=== PATIENT | female | born 2000 | race Caucasian/White ===

== ENCOUNTER 2022-05-17 12:07 | Inpatient (IN) | payer BC ==
[~2022-05-17 12:07] MED LIST: Bupivacaine PF 0.5% 30 ML VIAL ONE
[2022-05-17] MEDS ORDERED: Acetaminophen 500 MG TAB PO PRN (12:18)
[2022-05-17] MEDS ORDERED: Docusate 100 MG CAP PO PRN (12:18)
[2022-05-17] MEDS ORDERED: Misoprostol 200 MCG TAB PR PRN (12:18)
[2022-05-17] MEDS ORDERED: Zolpidem Tartrate 5 MG TAB PO PRN (12:18)
[2022-05-17] MEDS ORDERED: Ondansetron PF 4 MG/2 ML Vial IVP PRN (12:18)
[2022-05-17] MEDS ORDERED: HYDROcodone/Acetaminophen 5/325 mg Tablet PO PRN ×2 (12:18)
[2022-05-17] MEDS ORDERED: Lidocaine 1% (PF) 30 ML VIAL SC PRN (12:18)
[2022-05-17] MEDS ORDERED: Ibuprofen 800 MG TAB PO PRN (12:18)
[2022-05-17] MEDS ORDERED: Butorphanol Tartrate 1 MG/ML VIAL SLOW IVP PRN (12:18)
[2022-05-17] MEDS ORDERED: Diphenoxylate HCl/Atropine Tablet PO PRN ×2 (12:18)
[2022-05-17] MEDS ORDERED: Promethazine HCl 25 MG/ML VIAL IM PRN (12:18)
[2022-05-17] MEDS ORDERED: hydrALAZINE 20 MG/ML VIAL SLOW IVP PRN (12:18)
[2022-05-17] MEDS ORDERED: Penicillin G 2.5 MILL.units 2.5 MILL.UNITS in Premix Bag 1 BAG IVPB SCH (12:30)
[2022-05-17] MEDS ORDERED: Penicillin G Potassium 5 MILL.UNITS in Sodium Chloride 0.9% 100 ML IVPB SCH (12:30)
[2022-05-17] MEDS ORDERED: NS w/ Oxytocin 30 units 500 ML IV SCH ×2 (12:30)
[2022-05-17] MEDS ORDERED: Lactated Ringer's 1,000 ML IV SCH (12:30)
[2022-05-17 12:58] VITALS: BMI 24.0
[2022-05-17] MEDS: Misoprostol 100 MCG TAB VAG SCH ×2 (13:26→17:53)
[2022-05-17 13:50] LABS: Hemoglobin 12.3 g/dL (12.0-15.5); Mean Corpuscular HGB CONC 36.2 g/dL (32.0-36.0); Mean Corpuscular Hemoglobin 36.5 pg (27.0-33.0); Mean Corpuscular Volume 100.9 fl (81.6-98.3); Mean Platelet Volume 11.4 fl (7.4-10.4); Platelet Count 267 10x3/uL (150-450); RBC Distribution Width 12.2 % (11.5-14.5); Red Blood Cell (RBC) Count 3.37 10x6/uL (3.90-5.03); White Blood Cell (WBC) Count 8.1 10x3/uL (3.5-10.5)
[2022-05-17 14:09] LABS: HBSAg Index 0.21 S/CO (0-0.99); HIV (1/2) Antibody/Antigen Non-Reactive (NonReactive); HIV 1/2 INDEX 0.07 S/CO (<1.00); Hep B Surf Ag Non-Reactive S/CO (NonReactive)
[2022-05-17 14:10] LABS: Syphilis Antibody Nonreactive (Nonreactive); Syphilis Antibody Index 0.02 S/CO (<1.00 Non-Reactive)
[2022-05-17 15:32] LABS: SARS-CoV-2 NAA Rapid Test Not Detected (NotDetected)
[2022-05-18] MEDS ORDERED: Fentanyl 2 mcg/Bup 0.1% Cadd 100 ML ONE (00:01)
[2022-05-18] MEDS ORDERED: Betamet Acet/Betamet Na Ph 30 MG/5 ML VIAL ONE (00:53)
[2022-05-18] MEDS ORDERED: Penicillin G Potassium 5 MILL.UNITS VIAL ONE (03:03)
[2022-05-18] MEDS ORDERED: Boostrix 0.5 ML (Tdap) VIAL (>/=7 yrs of age) IM ONE (06:52)
[2022-05-18] MEDS ORDERED: Misoprostol 200 MCG TAB VAG PRN (06:52)
[2022-05-18] MEDS ORDERED: Bisacodyl 10 MG SUPP PR PRN (06:52)
[2022-05-18] MEDS ORDERED: Benzocaine-Menthol 82.5 ML CAN TOP PRN (06:52)
[2022-05-18] MEDS ORDERED: hydrALAZINE 20 MG/ML VIAL SLOW IVP PRN (06:52)
[2022-05-18] MEDS ORDERED: HYDROcodone/Acetaminophen 5/325 mg Tablet PO PRN ×2 (06:52)
[2022-05-18] MEDS ORDERED: Preparation H Ointment 28 GM TUBE PR PRN (06:52)
[2022-05-18] MEDS ORDERED: Milk Of Magnesia 30 ML UDCUP PO PRN (06:52)
[2022-05-18] MEDS ORDERED: diphenhydrAMINE 25 MG CAP PO PRN (06:52)
[2022-05-18] MEDS ORDERED: Zolpidem Tartrate 5 MG TAB PO PRN (06:52)
[2022-05-18] MEDS ORDERED: Ondansetron PF 4 MG/2 ML Vial IVP PRN (06:52)
[2022-05-18] MEDS ORDERED: Lanolin Ointment 7 GM TUBE TOP PRN (06:52)
[2022-05-18] MEDS ORDERED: Witch Hazel-Glycerin 1 EACH JAR TOP PRN (06:53)
[2022-05-18] MEDS ORDERED: NS w/ Oxytocin 30 units 500 ML IV SCH (07:00)
[2022-05-18] MEDS: Prenatal Vitamin 1 TAB PO SCH (09:33)
[2022-05-18] MEDS: Ferrous Sulfate 325 MG TAB PO SCH ×2 (09:33→15:07)
[2022-05-18] MEDS: Docusate 100 MG CAP PO SCH ×2 (09:33→21:38)
[2022-05-18] MEDS ORDERED: Betamet Acet/Betamet Na Ph 30 MG/5 ML VIAL IM SCH (11:55)
[2022-05-18] MEDS: Ibuprofen 800 MG TAB PO SCH (12:56)
[2022-05-19] MEDS: Ibuprofen 800 MG TAB PO SCH ×4 (05:03→21:41)
[2022-05-19 05:21] LABS: ALT (SGPT) 61 U/L (8-55); AST (SGOT) 37 U/L (5-34); Albumin 2.8 g/dL (3.5-5.0); Alkaline Phosphatase 265 U/L (40-110); Anion Gap 13 mmol/L (10-20); BUN (Urea Nitrogen) 6 mg/dL (7.0-18.7); Bilirubin, Total 0.8 mg/dL (0.2-1.2); Calc. Creatinine Clearance 134 mL/min (70-130); Calcium 8.8 mg/dL (7.8-10.44); Carbon Dioxide 20 mmol/L (22-29); Chloride 110 mmol/L (98-107); Estimated GFR 126; Globulin 2.9 g/dL (2.4-3.5); Glucose 86 mg/dL (70-105); Potassium 4.2 mmol/L (3.5-5.1); Protein, Total 5.7 g/dL (6.0-8.3); Sodium 139 mmol/L (136-145)
[2022-05-19 05:24] LABS: Hemoglobin 11.5 g/dL (12.0-15.5); Mean Corpuscular HGB CONC 35.2 g/dL (32.0-36.0); Mean Corpuscular Hemoglobin 35.9 pg (27.0-33.0); Mean Corpuscular Volume 102.2 fl (81.6-98.3); Platelet Count 286 10x3/uL (150-450); RBC Distribution Width 12.4 % (11.5-14.5); White Blood Cell (WBC) Count 20.9 10x3/uL (3.5-10.5)
[2022-05-19] MEDS: Ferrous Sulfate 325 MG TAB PO SCH ×2 (08:37→14:53)
[2022-05-19] MEDS: Docusate 100 MG CAP PO SCH ×2 (09:36→21:41)
[2022-05-19] MEDS: Prenatal Vitamin 1 TAB PO SCH (09:36)
[2022-05-20] MEDS: Ibuprofen 800 MG TAB PO SCH (06:04)
[2022-05-20] MEDS: Prenatal Vitamin 1 TAB PO SCH (07:35)
[2022-05-20] MEDS: Docusate 100 MG CAP PO SCH (07:36)
[2022-05-20 08:46] VITALS: BP 135/69; TEMP 98.1
[2022-05-20] MEDS: Ferrous Sulfate 325 MG TAB PO SCH (08:54)
== END 2022-05-20 10:45 | disposition home or self-care (01) | DRG 805 ==
LOC: CSHLD 12:07 → CSHPP 05-18 09:15
PROVIDERS: ADMIT Obstetrics & Gynecology; ATTEND Obstetrics & Gynecology
PROC: 10907ZC Drainage of Amniotic Fluid, Therapeutic from Products of Conception, Via Natural or Artificial Opening (ICD-10-PCS; 2022-05-17)
PROC: 3E0P7VZ Introduction of Hormone into Female Reproductive, Via Natural or Artificial Opening (ICD-10-PCS; 2022-05-17)
PROC: 10E0XZZ Delivery of Products of Conception, External Approach (ICD-10-PCS; principal; 2022-05-18)
PROC: 0KQM0ZZ Repair Perineum Muscle, Open Approach (ICD-10-PCS; 2022-05-18)
PROC: 3E0334Z Introduction of Serum, Toxoid and Vaccine into Peripheral Vein, Percutaneous Approach (ICD-10-PCS; 2022-05-18)
DX: O26.62 Liver and biliary tract disorders in childbirth (principal); K83.1 Obstruction of bile duct; Z37.0 Single live birth; O60.14X0 Preterm labor third trimester with preterm delivery third trimester, not applicable or unspecified; O99.354 Diseases of the nervous system complicating childbirth; Z3A.36 36 weeks gestation of pregnancy; G43.909 Migraine, unspecified, not intractable, without status migrainosus; D64.9 Anemia, unspecified; O99.02 Anemia complicating childbirth; Z90.89 Acquired absence of other organs; Z79.899 Other long term (current) drug therapy; O26.893 Other specified pregnancy related conditions, third trimester; Z67.11 Type A blood, Rh negative; L29.9 Pruritus, unspecified; O99.72 Diseases of the skin and subcutaneous tissue complicating childbirth; Z20.822 Contact with and (suspected) exposure to COVID-19; O70.1 Second degree perineal laceration during delivery
CPT/HCPCS: 36415; 51702; 80053; 85027; 85461; 86780; 86850; 86870; 86900; 86901; 87340; 87389; 90384; 96372; J2001; J2540; J3490; S0020; U0002